=== PATIENT | female | born 1950 | race Caucasian/White ===

== ENCOUNTER 2017-12-04 18:09 | Emergency (ER) | payer MEDICAID ==
[2017-12-04] MEDS: KETOROLAC 15 MG INJ IV (21:16)
[2017-12-04 21:17] LABS: ADD MAN DIFF? NO
[2017-12-04 21:19] LABS: WHITE BLOOD COUNT 9.6 10^3/ul (4.8-10.8)
[2017-12-04 21:19] LABS: BASOPHILS % 0.3 % (0.0-2.0); EOSINOPHILS # 0.5 10^3/ul (0.0-0.5); EOSINOPHILS % 4.7 % (0.0-7.0); HEMATOCRIT 41.5 % (37.0-47.0); HEMOGLOBIN 13.3 g/dl (12.0-16.0); LYMPHOCYTES # 3.4 10^3/ul (0.8-2.9); MEAN CORPUSCULAR VOLUME 90.6 fl (82.0-101.0); MEAN PLATELET VOLUME 10.7 fl (7.4-10.4); MONOCYTE # 0.5 10^3/ul (0.3-0.9); MONOCYTES % 5.1 % (0.0-11.0); NEUTROPHIL # 5.3 10^3/ul (1.6-7.5); NEUTROPHILS % 54.6 % (39.0-77.0); PLATELET COUNT 272 10^3/UL (140-415); RED BLOOD COUNT 4.58 10^6/ul (4.20-5.40); RED CELL DISTRIBUTION WIDTH 13.5 % (11.5-14.5)
[2017-12-04] MEDS: DIAZEPAM 5 MG/ML SYG IV (21:26)
[2017-12-04 21:39] LABS: ANION GAP 13 (8-16); BLOOD UREA NITROGEN 22 mg/dl (7-20); CALCIUM 9.8 mg/dl (8.4-10.2); CARBON DIOXIDE 27 mmol/L (21-31); CHLORIDE 107 mmol/L (97-110); CREATININE 0.72 mg/dl (0.44-1.00); GLUCOSE 156 mg/dl (70-220); POTASSIUM 4.4 mmol/L (3.5-5.1); SODIUM 143 mmol/L (135-144)
[2017-12-04 21:49] LABS: TROPONIN-I < 0.012 ng/ml (0.000-0.120)
[2017-12-04 22:00] LABS: INR 0.89; PROTIME 12.1 Sec (11.9-14.9); PT RATIO 0.9
[2017-12-04 22:01] LABS: PARTIAL THROMBOPLASTIN TIME 29.3 Sec (23.0-35.0)
== END 2017-12-05 00:22 | disposition home or self-care (01) ==
LOC: FTE 12-05 00:22
DX: M54.2 Cervicalgia (principal); I10 Essential (primary) hypertension; E11.9 Type 2 diabetes mellitus without complications; R51 Headache
CPT/HCPCS: 36415; 70450; 72125; 80048; 84484; 85025; 85610; 85730; 93005; 96374; 99285-25

== ENCOUNTER 2017-12-06 00:23 | Emergency (ER) | payer MEDICAID ==
[2017-12-06] MEDS: ARTIFICIAL TEARS 15 ML OPH LEFT EYE (04:10)
[2017-12-06] MEDS: ASPIRIN 81 MG TAB PO (04:15)
[2017-12-06 05:28] LABS: TROPONIN-I < 0.012 ng/ml (0.000-0.120)
== END 2017-12-06 07:35 | disposition home or self-care (01) ==
LOC: E/R 00:23
DX: G51.0 Bell's palsy (principal); I10 Essential (primary) hypertension; E11.9 Type 2 diabetes mellitus without complications; J45.909 Unspecified asthma, uncomplicated
CPT/HCPCS: 70450; 84484; 99284-25

== ENCOUNTER 2017-12-30 20:28 | Emergency (ER) | payer MEDICAID ==
[2017-12-30] MEDS: morphine 4 MG/ML VIAL IV ×2 (21:18→21:22)
[2017-12-30] MEDS: ONDANSETRON 4 MG INJ IV (21:18)
[2017-12-30] MEDS: SOD CHLORIDE 0.9% 1,000 ML IV (21:18)
[2017-12-30 21:19] LABS: ADD MAN DIFF? NO
[2017-12-30 21:24] LABS: BASOPHILS % 0.5 % (0.0-2.0); EOSINOPHILS # 0.6 10^3/ul (0.0-0.5); EOSINOPHILS % 7.2 % (0.0-7.0); HEMATOCRIT 37.2 % (37.0-47.0); HEMOGLOBIN 12.1 g/dl (12.0-16.0); LYMPHOCYTES # 3.8 10^3/ul (0.8-2.9); LYMPHOCYTES % 46.1 % (15.0-51.0); MEAN CORPUSCULAR HEMOGLOBIN 29.6 pg (29.0-33.0); MEAN CORPUSCULAR HGB CONC 32.5 g/dl (32.0-37.0); MEAN PLATELET VOLUME 10.6 fl (7.4-10.4); MONOCYTE # 0.5 10^3/ul (0.3-0.9); MONOCYTES % 6.3 % (0.0-11.0); NEUTROPHIL # 3.3 10^3/ul (1.6-7.5); NEUTROPHILS % 39.5 % (39.0-77.0); PLATELET COUNT 284 10^3/UL (140-415); RED BLOOD COUNT 4.09 10^6/ul (4.20-5.40); RED CELL DISTRIBUTION WIDTH 14.3 % (11.5-14.5)
[2017-12-30 21:24] LABS: WHITE BLOOD COUNT 8.3 10^3/ul (4.8-10.8)
[2017-12-30 21:43] LABS: ANION GAP 8 (5-13); BLOOD UREA NITROGEN 20 mg/dl (7-20); CALCIUM 9.8 mg/dl (8.4-10.2); CARBON DIOXIDE 27 mmol/L (21-31); CHLORIDE 106 mmol/L (97-110); CREATININE 0.81 mg/dl (0.44-1.00); Estimated GFR > 60 mL/min (>60); GLUCOSE 230 mg/dl (70-220); INR 0.82; POTASSIUM 4.6 mmol/L (3.5-5.1); PROTIME 11.4 Sec (11.9-14.9); PT RATIO 0.9; SODIUM 141 mmol/L (135-144)
[2017-12-30 21:44] LABS: PARTIAL THROMBOPLASTIN TIME 28.2 Sec (23.0-35.0)
[2017-12-30] MEDS ORDERED: IOHEXOL 100 ML (23:02)
[2017-12-30] MEDS ORDERED: SOD CHLORIDE 0.9% 100 ML (23:02)
== END 2017-12-31 00:14 | disposition home or self-care (01) ==
LOC: E/R 12-31 00:14
DX: G51.0 Bell's palsy (principal); I10 Essential (primary) hypertension; E11.9 Type 2 diabetes mellitus without complications
CPT/HCPCS: 36415; 70450; 70496; 70498; 80048; 82962; 85025; 85610; 85730; 93005; 96374; 99285-25

== ENCOUNTER 2018-08-01 22:14 | Emergency (ER) | payer MEDICAID, OTHER ==
[2018-08-02] MEDS: KETOROLAC 15 MG INJ IM (01:11)
[2018-08-02] MEDS: AMOXICILLIN 500 MG CAP PO (01:14)
== END 2018-08-02 01:37 | disposition home or self-care (01) ==
LOC: FTE 22:14
DX: K08.89 Other specified disorders of teeth and supporting structures (principal); I10 Essential (primary) hypertension; Z86.73 Personal history of transient ischemic attack (TIA), and cerebral infarction without residual deficits
CPT/HCPCS: 96372; 99284-25

== ENCOUNTER 2018-10-15 21:43 | Emergency (ER) | payer MEDICAID ==
[2018-10-16] MEDS: HYDROCODONE/APAP (10/325) TAB PO (01:35)
[2018-10-16] MEDS: ONDANSETRON (ODT) 4 MG TAB ODT (02:55)
[2018-10-16] MEDS: NICARDipine HCL 30 MG CAPSULE PO (03:43)
[2018-10-16] MEDS: METOCLOPRAMIDE 10 MG TAB PO (05:12)
[2018-10-16] MEDS: LORAZEPAM 1 MG TAB PO (05:12)
== END 2018-10-16 06:04 | disposition home or self-care (01) ==
LOC: FTE 21:43
DX: S20.212A Contusion of left front wall of thorax, initial encounter (principal); I10 Essential (primary) hypertension; W01.0XXA Fall on same level from slipping, tripping and stumbling without subsequent striking against object, initial encounter; Y92.410 Unspecified street and highway as the place of occurrence of the external cause
CPT/HCPCS: 70450; 71110; 93005; 99285-25